=== PATIENT | male | born 1985 | race Caucasian/White ===

== ENCOUNTER → 2019-07-24 07:35 | Outpatient (CLI) | payer BC, OTHER, SELFPAY ==
[2015-07-31 22:42] VITALS: BMI 36.1
--- NOTE | 2019-07-24 07:56 | EKG12_ITS ---
Test Reason : ROUTINE Blood Pressure : / mmHG Vent. Rate : 084 BPM Atrial Rate : 084 BPM P-R Int : 162 ms QRS Dur : 086 ms QT Int : 360 ms P-R-T Axes : 052 052 044 degrees QTc Int : 425 ms Normal sinus rhythm Normal ECG Confirmed by MONIQUE DOSHI, ERLIN ([id number]), commissioning editor AUGUSTUS WOODALL ([id number] on 07/26/2019 10:19:27 AM Referred By: JONATHAN Tracy [facility] Confirmed By:HENRY AMAYA MD
[2019-07-24 08:54] LABS: Absolute Lymphocyte Count 1.46 X10^3/uL (0.83-4.51); Absolute Neutrophil Count 4.6 X10^3/uL (2.0-7.7); Basophil% 1.4 % (0-1); Eosinophil# 0.25 X10^3/uL; Eosinophils% 3.5 % (0-5); Hematocrit 46.8 % (40-54); Hemoglobin 15.7 g/dL (13.0-16.5); Lymphocyte # 1.46 X10^3/ul (4.0); Lymphocyte % 20.4 % (19-41); Mean Corp Hgb Conc 33.5 g/dL (32-36); Mean Corpuscular Hgb 32.4 pg (27.0-32.0); Mean Corpuscular Volume 96.5 fL (80-94); Mean Platelet Vol. 9.4 fl (6.2-12.0); Monocyte# 0.74 X10^3/uL; Monocyte% 10.3 % (0-10); NRBC Flagged by Analyzer 0 % (0-5); Neutrophil # 4.57 X10^3/uL (2.7-7.7); Platelet Count 218 K/mm3 (150-450); RBC Distribution Width SD 42.6 fl (35.1-43.9); Red Blood Count 4.85 M/mm3 (4.6-6.2); White Blood Count 7.2 K/mm3 (4.4-11.0)
[2019-07-24 09:30] LABS: Vitamin D,25 Hydroxy 14.9 ng/mL (29.95-100.01)
[2019-07-24 09:32] LABS: ALB/GLOB Ratio 1.1 RATIO (0.9-2.4); AST(SGOT) 15 U/L (15-37); Alanine Aminotransfer ALT/SGPT 41 U/L (16-61); Alkaline Phosphatase 57 U/L (45-117); Anion Gap 7 (5-15); BUN 10 mg/dL (7-18); BUN/Creat Ratio 9.1 RATIO (10-20); Calcium,Total 8.6 mg/dL (8.5-10.1); Chloride 104 mmol/L (98-107); Cholesterol 183 mg/dL (200); EST Glomerular Filtration Rate 82 mL/min (>60); Est Glom Filt Rate - Afr Amer 99 mL/min (>60); Globulin 3.8 g/dL (2.2-4.2); Glucose 92 mg/dL (74-106); High Density Lipoprotein 43 mg/dL; Potassium 3.7 mmol/L (3.5-5.1); Protein, Total 7.8 g/dL (6.4-8.2); Sodium Level 138 mmol/L (136-145); Thyroid Stim Hormone (TSH) 2.02 uIU/mL (0.358-3.74); Triglycerides 115 mg/dL; Very Low Density Lipoprotein 23 mg/dL (5-40)
== END ==
PROVIDERS: Family Provider Physician Assistant; PCP Physician Assistant; Referring Provider Nurse Practitioner Family; Visit Provider Nurse Practitioner Family
DX: F19.10 Other psychoactive substance abuse, uncomplicated (principal); R53.83 Other fatigue; Z79.899 Other long term (current) drug therapy
CPT/HCPCS: 36415; 80053; 80061; 80156; 82306; 84443; 85025; 93005

== ENCOUNTER 2021-04-23 21:32 | Emergency (ER) | payer BC, OTHER, SELFPAY ==
[2021-04-23 21:33] VITALS: BP 144/83; PULSE 112; RESP 18; TEMP 37.4; O2SAT 97; BMI 39.0
--- NOTE | 2021-04-23 21:36 | RAD_ITS ---
EXAM: XR RIGHT TIBIA AND FIBULA, 2 VIEWS : 1985 CLINICAL INDICATION: FALL TECHNIQUE: Frontal and lateral views of the right tibia and fibula. This report was created using [employer] report generation technology. COMPARISON: None. FINDINGS: BONES/JOINTS: Unremarkable. No acute fracture. No subluxation. Normal alignment. Preservation of the joint space. No sclerotic or destructive changes observed. SOFT TISSUES: Lateral soft tissue swelling at the ankle. No radiopaque foreign body. RAD/Tibia & Fibula 2 Views IMPRESSION: Lateral soft tissue swelling at the ankle. No fractures identified. at 2209 Reported and signed by: Wlifrido Lu MD Electronically Signed: Wilfrido Lu MD at 22:09 EDT Tel , Service support ,
--- NOTE | 2021-04-23 21:36 | RAD_ITS ---
EXAM: XR RIGHT ANKLE COMPLETE, 3 OR MORE VIEWS : 1985 CLINICAL INDICATION: FALL -- IN LOBBY TECHNIQUE: Frontal, lateral and oblique views of the right ankle. This report was created using [employer] report Relevant e-solution technology. COMPARISON: None. FINDINGS: BONES/JOINTS: Unremarkable. No acute fracture. No subluxation. Normal alignment. Preservation of the joint space. No sclerotic or destructive changes observed. SOFT TISSUES: Lateral soft tissue swelling. No radiopaque foreign body. RAD/Ankle min 3 Views IMPRESSION: Lateral soft tissue swelling. No fractures identified. at 2209 Reported and signed by: Wilfrido Lu MD Electronically Signed: Wilfrido Lu MD at 22:08 EDT Tel , Service support ,
--- NOTE | 2021-04-23 23:02 | ED.VIS.LOWEX ---
HPI History of Present Illness Chief Complaint: Lower Extremity Injury Narrative Narrative: 35-year-old male presenting with right ankle pain. He states he stepped on a gopher hole earlier today. He has antalgic gait. He is just on a crutch to help him get into the ER. He took nothing for pain prior to arrival. Patient does have swelling over the right ankle. PFSH PFS Medical History Bipolar disorder Depression Home Medications naproxen 500 mg PO BID PRN PRN #20 tab 08/01/15 [Rx Last Taken Unknown] naproxen [Naprosyn] 500 mg PO BID PRN #30 tab 04/23/21 [Rx Last Taken Unknown] Allergy/AdvReac Type Severity Reaction Status Date / Time No Known Allergies Allergy Verified 07/31/15 22:44 Social History Smoking Status: Never smoker ROS ROS ED Constitutional Constitutional ED: Denies chills or fever(s) Eyes Eyes: Denies blurry vision or diplopia ENT ENT ED: Denies rhinorrhea or sore throat Cardiovascular Cardiovascular: Denies chest pain or palpitations Respiratory/Chest Respiratory/Chest: Denies cough or dyspnea Gastrointestinal Gastrointestinal: Denies abdominal pain, nausea or vomiting Genitourinary Genitourinary ED: Denies dysuria or hematuria Musculoskeletal Musculoskeletal: Reports myalgias and other Details: Right ankle pain and swelling Integumentary Denies abscess or rash Neurologic Neurologic: Reports headache(s) EXAM Physical Exam Const Vital Signs: 04/23/21 21:33 Temperature 99.3 F H Temperature Source Temporal Pulse Rate 112 H Respiratory Rate 18 Blood Pressure 144/83 H Blood Pressure Mean 103 Pulse Ox 97 Oxygen Delivery Method Room Air Positive well nourished General Appearance ED: NAD HEENT normocephalic and atraumatic Eyes PERRL Extremity Extremity Narrative: Tenderness palpation over the right lateral malleolus. There is significant swelling here. Right foot neurovascular intact brisk cap refill to all 5 toes. Neuro oriented x3 Sensorium / Orientation: alert Psych mental status grossly normal Skin Skin Narrative: Bruising and swelling over the right lateral malleolus MDM MDM MDM Narrative Medical decision making narrative: Patient had x-rays of the tib-fib and the right ankle which showed no acute fractures on my interpretation. Patient given Naprosyn, Varun wrap, Aircast, crutches for home. He will be given a prescription for Naprosyn instructed to ice and elevate this. He states he does not need a work note. Patient is discharged home in stable condition. Impression: 1. Right ankle sprain Radiography Diagnostic Testing: Radiology Impression Ankle X-Ray 04/23/21 21:36 IMPRESSION: Lateral soft tissue swelling. No fractures identified. at 2209 Reported and signed by: Wilfrido Lu MD Electronically Signed: Wilfrido Lu MD at 22:08 EDT Tel , Service support , Tibia/Fibula X-Ray 04/23/21 21:36 IMPRESSION: Lateral soft tissue swelling at the ankle. No fractures identified. at 2209 Reported and signed by: Wilfrido Lu MD Electronically Signed: Wilfrido Lu MD at 22:09 EDT Tel , Service support , Discharge Plan Triage Chief Complaint: Lower Extremity Injury ED Provider: Alex Scherer Dx/Rx/DC Orders Instructions: ED Ankle Sprain (Adult) Prescriptions: New naproxen [Naprosyn] 500 mg tablet 500 mg PO BID PRN (Reason: pain) Qty: 30 RF: 0 No Action naproxen 500 MG tablet 500 mg PO BID PRN PRN (Reason: Pain) Qty: 20 RF: 0 Primary Care Provider: Long Aguilar Referrals: Long Aguilar PA [Primary Care Provider] - Disposition Disposition: Home, Self Care
[2021-04-23] MEDS: Naproxen 500 MG Tablet PO (23:42)
== END 2021-04-23 23:58 | disposition home or self-care (01) ==
LOC: ED 23:19
PROVIDERS: Emergency Provider Student in an Organized Health Care Education/Training Program; PCP Physician Assistant
DX: S93.401A Sprain of unspecified ligament of right ankle, initial encounter (principal); X58.XXXA Exposure to other specified factors, initial encounter
CPT/HCPCS: 73590; 73610; 99284